=== PATIENT | male | born 1935 | race Hispanic/Latino ===

== ENCOUNTER 2021-03-06 02:19 | Emergency (ER) | payer MEDICARE, OTHER ==
[~2021-03-06] VITALS: Ht 160 cm; Wt 79.4 kg
[2021-03-06] MEDS ORDERED: OMEPRAZOLE20 MG PO (06:07)
--- NOTE | 2021-03-07 00:08 | EKG ---
[facility] [address] [facility] [place] [address] Signed Sinus rhythm with occasional premature ventricular complexes Possible Left atrial enlargement Right bundle branch block Abnormal ECG No previous ECGs available Confirmed by BENEDICT FORD MD ([id number] on 03/07/2021 12:07:56 AM Electronically Signed By: BENEDICT FORD MD 03/07/21 0008 PATIENT NAME: DORINA ACUÑA Electrocardiogram DATE OF : [birth year] PHYSICIAN: BENEDICT FORD MD REPORT #: [id number] REPORT IS CONFIDENTIAL AND NOT TO BE RELEASED WITHOUT AUTHORIZATION
== END 2021-03-06 06:34 | disposition home or self-care (01) ==
LOC: ED 02:19
DX: K80.20 Calculus of gallbladder without cholecystitis without obstruction (principal); K57.30 Diverticulosis of large intestine without perforation or abscess without bleeding; R74.01 Elevation of levels of liver transaminase levels
CPT/HCPCS: 74177; 80053; 81001; 83690; 83735; 84484; 85025; 93005; 93010; 99284-25; C9113; J1170; J2405; J7030; Q9967

== ENCOUNTER 2022-03-01 03:05 | Emergency (ER) | payer MEDICARE, OTHER ==
[~2022-03-01] VITALS: Ht 160 cm; Wt 77.1 kg
[~2022-03-01 03:05] MED LIST: OMEPRAZOLE20 MG PO
[2022-03-01] MEDS ORDERED: HYDROCODON-ACE1 EA10 PO (05:06)
[2022-03-01] MEDS ORDERED: ONDANSETRON ODT8 MG PO (05:06)
== END 2022-03-01 05:27 | disposition home or self-care (01) ==
LOC: ED 03:05
DX: R10.13 Epigastric pain (principal); K21.9 Gastro-esophageal reflux disease without esophagitis; I10 Essential (primary) hypertension
CPT/HCPCS: 36415; 74177; 80053; 81001; 83690; 85025; 96375; 99284-25; A9270; J1170; J2405; J7040; Q9967